=== PATIENT | male | born 1980 | race Caucasian/White ===

== ENCOUNTER 2019-12-16 23:12 | Emergency (ER) | payer OTHER ==
[2019-12-16] MEDS ORDERED: ACETAMINOPHEN 325 MG TABLET (FP) PO ONE (23:50)
[2019-12-16 23:51] VITALS: TEMP 98.6; BMI 25.7
[2019-12-17] MEDS ORDERED: ACETAMINOPHEN 325 MG TABLET (FP) ONE (00:06)
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
[2019-12-17 01:25] VITALS: BP 130/79; PULSE 98
== END 2019-12-17 01:30 | disposition home or self-care (01) ==
LOC: JER 23:12
DX: S62.306A Unspecified fracture of fifth metacarpal bone, right hand, initial encounter for closed fracture (principal)
CPT/HCPCS: 73130-TC-RT-FY; 99284-25